=== PATIENT | female | born 1930 | race Caucasian/White ===

== ENCOUNTER 2018-08-14 18:11 | Inpatient (IN) | payer MEDICARE, OTHER ==
[2018-08-14 18:50] LABS: % EOSINOPHILS 3.3 % (0.0-5.0); % MONOCYTES 7.3 % (2.0-10.0); % NEUTROPHILS 70.4 % (40.0-80.0); EOSINOPHILE ABSOLUTE 0.3 Th/cmm (0.1-0.4); HEMATOCRIT 43.2 % (41.0-60); HEMOGLOBIN 14.1 gm/dL (12-16); LYMPHOCYTE ABSOLUTE 1.9 Th/cmm (1.5-3.0); MEAN CELL VOLUME 90.1 fl (81-100); MEAN CORPUSCULAR HEMOGLOBIN 29.4 pg (27.0-31.0); MEAN CORPUSCULAR HGB CONC 32.7 pg (28.0-36.0); MONOCYTE ABSOLUTE 0.7 Th/cmm (0.3-1.0); NEUTROPHILE ABSOLUTE 7.1 Th/cmm (1.8-8.0); PLATELET COUNT 243 Th/cmm (150-400); RED CELL DISTRIBUTION WIDTH 13.5 % (11.5-20.0)
[2018-08-14 19:05] LABS: URINE SOURCE CLEAN C
--- NOTE | 2018-08-14 19:06 | ED Physician Chart ---
ED Chief Complaint/HPI - Patient Information Date Seen:: 08/14/18 Time Seen:: 18:19 Chief Complaint:: agitation, voluntary admit History of Present Illness:: agitation, voluntary admit Allergies:: Allergies Allergy/AdvReac Type Severity Reaction Status Date / Time No Known Allergies Allergy Verified 08/14/18 18:19 Vitals:: Vital Signs - 8 hr 08/14/18 18:19 Temp 97.9 F HR 66 RR 16 BP 129/58 O2 Sat % 98 Historian:: Medical Records Review:: Nurse's Note Reviewed ED Review of Systems - Review of Systems General/Constitutional: No fever, No chills, No weight loss, No weakness, No diaphoresis, No edema, No loss of appetite Skin: No skin lesions, No rash, No bruising Head: No headache, No light-headedness Eyes: No loss of vision, No pain, No diplopia ENT: No earache, No nasal drainage, No sore throat, No tinnitus Neck: No neck pain, No swelling, No thyromegaly, No stiffness, No mass noted Cardio Vascular: No chest pain, No palpitations, No PND, No orthopnea, No edema Pulmonary: No SOB, No cough, No sputum, No wheezing GI: No nausea, No vomiting, No diarrhea, No pain, No melena, No hematochezia, No constipation, No hematemesis G/U: No dysuria, No frequency, No hematuria Musculoskeletal: No bone or joint pain, No back pain, No muscle pain Endocrine: No polyuria, No polydipsia Psychiatric: Prior psych history, Other (increased agitation) Hematopoietic: No bruising, No lymphadenopathy Allergic/Immuno: No urticaria, No angioedema Neurological: No syncope, No focal symptoms, No weakness, No paresthesia, No headache, No seizure, No dizziness, No confusion, No vertigo ED Past Medical History - Past Medical History Obtainable: No Past Medical History: HTN, Dyslipidemia, Thyroid disorder, Dementia, Other ( muscle weakness; nonSTEMI CO; CHF; stage III CKD) Psychiatricy History: Dementia Family Medical History - Family Member Mother History Unknown: Yes ED Physical Exam - Physical Examination General/Constitutional: Awake Other Gen/Cons comments:: Thin female. Head: Atraumatic Eyes: Lids, conjuctiva normal, PERRL, EOMI Skin: Nl inspection, No rash, No skin lesions, No ecchymosis, Well hydrated, No lymphadenopathy ENMT: External ears, nose nl Neck: Nontender Respiratory: Nl effort/Exclusion, Clear to Auscultation, No Wheeze/Rhonchi/Rales Cardio Vascular: RRR, No murmur, gallop, rubs, NL S1 S2 GI: No tenderness/rebounding/guarding, No organomegaly, No hernia, Normal BS's, Nondistended, No mass/bruits, No McBurney tenderness : No CVA tenderness Extremities: No tenderness or effusion, Full ROM, normal strength in all extremities, No edema, Normal digits & nails Neuro/Psych: Normal sensory exam, Normal motor strength Other Neuro/Psych comments:: walking around alot. Misc: Normal back, No paraspinal tenderness ED Labs/Radiology/EKG Results - Lab Results Results: Laboratory Tests 08/14/18 18:44 WBC 10.0 RBC 4.80 Hgb 14.1 Hct 43.2 MCV 90.1 MCH 29.4 MCHC Differential 32.7 RDW 13.5 Plt Count 243 MPV 8.0 Neutrophils % 70.4 Lymphocytes % 19.0 L Monocytes % 7.3 Eosinophils % 3.3 Basophils % 0.0 ED Assessment - Assessment General Assessment: has eaten dinner Assessment/Comments:: sign out given to Dr. Martin at 7:05 p.m. ED Septic Shock - . Is Septic Shock (SBP<90, OR Lactate>4 mmol\L) present?: No - <6hrs of presentation: Vital Signs: Vital Signs - 8 hr 08/14/18 18:19 Temp 97.9 F HR 66 RR 16 BP 129/58 O2 Sat % 98 ED Reassessment (Disposition) - Reassessment Reassessment Condition:: Unchanged - Diagnosis Diagnosis:: Increased agitation Dementia Muscle weakness nonSTEMI CO CHF HTN Hyperlipidemia Hypothyroidism Stage III chronic kidney disease - Patient Disposition Discharge/Transfer:: Acute Care w/in this hosp Admitted to:: [facility] Condition at Disposition:: Stable, Unchanged
[2018-08-14 19:09] LABS: ALB/GLOB RATIO 1.1 (1.0-1.8); ALBUMIN 3.9 gm/dL (3.7-5.3); ALKALINE PHOSPHATASE 67 U/L (34-104); ANION GAP 13.5 (7.0-16.0); BILIRUBIN,TOTAL 0.4 mg/dL (0.3-1.0); BUN - UREA NITROGEN 35 mg/dL (7-25); CALCIUM SERUM 9.7 mg/dL (8.6-10.3); CARBON DIOXIDE 27.4 mEq/L (21.0-31.0); CHLORIDE 104 mEq/L (98-107); CREATININE - SERUM 1.2 mg/dL (0.6-1.2); GLUCOSE 121 mg/dL (70-105); MAGNESIUM 2.1 mg/dL (1.9-2.7); PHOSPHOROUS 3.4 mg/dL (2.5-5.0); POTASSIUM SERUM 3.9 mEq/L (3.5-5.1); SGOT 14 U/L (13-39); SGPT/ALT 10 U/L (7-52); SODIUM SERUM 141 mEq/L (136-145); TOTAL PROTEIN,SERUM 7.4 gm/dL (6.0-8.3)
[2018-08-14 19:09] LABS: AMPHETAMINE URINE NEGATIVE (NEGATIVE); BARBITURATES URINE NEGATIVE (NEGATIVE); BENZODIAZEPINES QUAL URINE NEGATIVE (NEGATIVE); CANNABINOID THC NEGATIVE (NEGATIVE); COCAINE METABOLITE QUAL URINE NEGATIVE (NEGATIVE); METHADONE URINE NEGATIVE (NEGATIVE); METHAMPHETAMINES QUAL URINE NEGATIVE (NEGATIVE); OPIATES (MORPHINE) QUAL. URINE NEGATIVE (NEGATIVE); PHENCYCLIDINE (PCP) URINE NEGATIVE (NEGATIVE); TRICYCLICS (TCA) QUAL. URINE NEGATIVE (NEGATIVE); URINE BILIRUBIN NEGATIVE (NEGATIVE); URINE BLOOD NEGATIVE (NEGATIVE); URINE GLUCOSE (UA) NEGATIVE (NEGATIVE); URINE KETONE NEGATIVE (NEGATIVE); URINE LEUKOCYTE ESTERASE LARGE (NEGATIVE); URINE MICROSCOPIC INDICATED? YES; URINE NITRATE POSITIVE (NEGATIVE); URINE PH 7.5 (4.6 - 8.0); URINE PROTEIN NEGATIVE (NEGATIVE); URINE UROBILINOGEN 0.2 E.U./dL (0.2 - 1.0)
[2018-08-14 19:12] LABS: URINE CLARITY CLEAR (CLEAR); URINE COLOR YELLOW
[2018-08-14 19:15] LABS: URINE EPITHELIAL CELLS MODERATE /lpf (FEW); URINE RBC 0-2 /hpf (0-5)
[2018-08-14 19:16] LABS: URINE BACTERIA 4+ /hpf (NONE SEEN); URINE TRIPLE PHOSPHATE CRYSTAL FEW /hpf (FEW)
[2018-08-14] MEDS ORDERED: Ciprofloxacin 400mg Premix PB 400 MG/200 ML BAG IV ONE ×2 (19:18→19:40)
[2018-08-14 21:36] VITALS: BP 115/75
[2018-08-14 22:16] LABS: CHOLESTEROL 151 mg/dL (<200); HDL -HIGH DENSITY LIPOPROTEIN 47 mg/dL (23-92); TRIGLYCERIDES 95 mg/dL (<150)
[2018-08-15] MEDS: Docusate Sodium/Senna Tab PO SCH (09:23)
[2018-08-15] MEDS: Multivitamin w/ Minerals Tab PO SCH (09:24)
[2018-08-16] MEDS: Multivitamin w/ Minerals Tab PO SCH (09:57)
[2018-08-16] MEDS: Docusate Sodium/Senna Tab PO SCH (09:58)
--- NOTE | 2018-08-16 22:34 | History & Physical ---
ADMIT DATE: 08/15/2018 REASON FOR ADMISSION: Psychiatric disorder. HISTORY OF PRESENT ILLNESS: This is an 87-year-old female with underlying history of hypertension, UTI, admitted to the [facility] for underlying psychiatric illnesses by Dr. Sierra. Dr. Sierra requested medical H and P on this patient. The patient, at the time of my evaluation, seems confused, unable to provide any meaningful history. Most of the history obtained through the medical records. PAST MEDICAL HISTORY: Hypertension. PAST SURGICAL HISTORY: No significant past surgeries reported. SOCIAL HISTORY: No reported alcohol, tobacco or drug use. CURRENT MEDICATIONS: Per medication reconciliation. ALLERGIES: NO DRUG ALLERGIES. REVIEW OF SYSTEMS: No reported fever, no diarrhea, no vomiting, no chest, no trouble breathing. No headache, no rash, or any bleeding reported. PHYSICAL EXAMINATION: VITAL SIGNS: Temperature 98.1, pulse 90, respiration 18, blood pressure 126/70 HEART: S1, S2 normal. LUNGS: Clear to auscultation. ABDOMEN: Soft. EXTREMITIES: No edema noted. LABORATORY DATA: Available laboratory data has been reviewed. ASSESSMENT: 1. Urinary tract infection. 2. Hypertension. 3. Mental disorders. PLAN: The patient will be continued on antibiotics. Continue current blood pressure medication and monitor vitals. Psych evaluation and management per psychiatrist. The patient is medically stable to participate in activities at [facility]. JOB# [id number] [email or web address]
--- NOTE | 2018-08-17 01:56 | Psychiatric Evaluation ---
DATE OF SERVICE: 08/14/2018 PSYCHIATRIC INITIAL EVALUATION AND MENTAL STATUS EXAM PATIENT'S AGE: 87-year-old. SEX: Female. PHYSICIAN: Dr. Sierra. CHIEF COMPLAINT: Confusion and agitation. HISTORY OF PRESENT ILLNESS: The patient is an 87-year-old female who was transferred to the hospital from [facility] because of increased confusion and agitation. The patient has been wandering around the facility in a confused and in agitated state. The patient also was not able to follow any of staff directions and she was more irritable and in angry mood. The patient also was restless and was irritable and the patient was given Risperdal, but the patient did not calm down. She is still confused and restless and agitated and the patient has been wandering around the unit. She also is unable to follow any directions and gets more agitated when staff tries to redirect her. PAST PSYCHIATRIC HISTORY: The patient has history of dementia and also history of psychosis. PAST MEDICAL HISTORY: The patient has a history of hypertension, dyslipidemia and hypothyroidism. SOCIAL HISTORY: The patient lives in [facility] in the [facility]. The patient has no known alcohol or drug use. ALLERGIES: No known allergies. MENTAL STATUS EXAMINATION: The patient appears her stated age. Anxious. Flat affect. Irritable mood. Confused. Unable to answer any of the questions currently and her thoughts are disorganized. The patient did not answer question regarding hallucinations or delusions, but she seems to be preoccupied and actively responding. The patient denies any thoughts of suicide or homicide. The patient is alert, but disoriented to the place, person and situation. Impaired immediate and recent memory, but intact remote memory. Poor insight and poor judgment. She seems to be of average intelligence based on her verbal ability. ASSESSMENT: PRIMARY DIAGNOSIS: Unspecified psychosis. SECONDARY DIAGNOSIS: Dementia, moderate to severe, with behavioral disturbances and psychotic features. MEDICAL DIAGNOSES: Hypertension. Hypothyroidism. TREATMENT PLAN: We will continue monitoring her behavior closely. We will start individual as well as milieu psychotherapy. We will monitor psychotropic medications. ESTIMATED LENGTH OF STAY: 5-7 days. THE PATIENT'S STRENGTHS AND WEAKNESSES: The patient's strength is not clear at this time except the patient is able to return to [facility]. Weaknesses is ineffective coping and poor impulse control. AFTER DISCHARGE PLAN: Outpatient treatment and followup will continue as an outpatient. JOB# [id number]
--- NOTE | 2018-08-17 02:01 | Progress Notes ---
DATE: 08/16/2018 SUBJECTIVE: Chart reviewed and the patient interviewed. Also, discussed the patient's condition with the staff and reviewed records and labs. The patient is still suspicious and is still paranoid. The patient also is still pacing up and down the unit in a confused state. Also, the patient is easily agitated and easily irritable. Otherwise, the patient is compliant with medications, no side effects of medications. ASSESSMENT: The patient is still agitated and psychotic. TREATMENT PLAN: Continue monitoring her behavior closely. Also, continue adjusting psychotropic medications and follow up closely. JOB# [id number]
[2018-08-17] MEDS: Docusate Sodium/Senna Tab PO SCH (09:21)
[2018-08-17] MEDS: Multivitamin w/ Minerals Tab PO SCH (09:21)
[2018-08-17] MEDS ORDERED: Probiotic Screen MC PRN (10:00)
[2018-08-18] MEDS: Multivitamin w/ Minerals Tab PO SCH (09:12)
[2018-08-18] MEDS: Lactobacillus Rhamnosus GG 15 Billion CFU CAP.SPRINK PO SCH (09:13)
[2018-08-18] MEDS: Docusate Sodium/Senna Tab PO SCH (09:13)
--- NOTE | 2018-08-18 16:35 | Progress Notes ---
DATE: PSYCHIATRIC PROGRESS NOTE SUBJECTIVE: Chart reviewed and the patient interviewed. Also discussed the patient's condition with the staff and reviewed records and labs. The patient is still anxious and is still in depressed mood. The patient also is still confused and needs lots of redirections. She also is still easily irritable and easily agitated at times. Otherwise, the patient is compliant with taking her medications with no side effects of medications. ASSESSMENT: The patient is still agitated and needs close monitoring. TREATMENT PLAN: Continue monitoring her behavior and her condition and continue adjusting psychotropic medications and followup. JOB# [id number]
--- NOTE | 2018-08-18 18:19 | Progress Notes ---
DATE: PSYCHIATRIC PROGRESS NOTE SUBJECTIVE: Chart reviewed and the patient interviewed. Also discussed the patient's condition with the staff and reviewed records and labs. The patient is still confused. The patient also still has flat affect, has signs of agitation and irritability, but seems to be less. The patient also is still suspicious and paranoid. Otherwise, the patient is compliant with taking her medications with no side effects of medications. ASSESSMENT: The patient is still psychotic and guarded. TREATMENT PLAN: Continue monitoring her behavior and her condition closely. Also, continue adjusting psychotropic medications and followup. JOB# [id number]
--- NOTE | 2018-08-19 08:04 | Progress Notes ---
DATE: SUBJECTIVE: Chart reviewed and the patient interviewed. Also discussed the patient's condition with the staff and reviewed records and labs. The patient continues to be depressed and is withdrawn. The patient also is interacting minimally with others. She also is still feeling hopeless and she is still forgetful. On the other hand, the patient is sleeping better and she is compliant with taking her medications with no side effects. ASSESSMENT: The patient still seems to be depressed. TREATMENT PLAN: We will continue to monitor her condition closely. Also working on her ineffective coping. Also, we will increase Remeron to 22.5 mg at bedtime and continue Risperdal and we will continue to follow up closely. JOB# [id number]
[2018-08-19] MEDS: Lactobacillus Rhamnosus GG 15 Billion CFU CAP.SPRINK PO SCH ×2 (08:27→10:00)
[2018-08-19] MEDS: Multivitamin w/ Minerals Tab PO SCH ×2 (08:27→10:00)
[2018-08-19] MEDS: Docusate Sodium/Senna Tab PO SCH ×2 (08:28→10:00)
[2018-08-20] MEDS: Docusate Sodium/Senna Tab PO SCH (08:55)
[2018-08-20] MEDS: Multivitamin w/ Minerals Tab PO SCH (08:55)
[2018-08-20] MEDS: Lactobacillus Rhamnosus GG 15 Billion CFU CAP.SPRINK PO SCH (08:57)
--- NOTE | 2018-08-21 00:20 | Progress Notes ---
DATE: SUBJECTIVE: Chart reviewed and the patient interviewed. Also discussed the patient's condition with the staff and reviewed records and labs. The patient is still depressed and withdrawn and anxious. The patient also still wants to be left alone and she is having minimal interaction with others. She also is still feeling hopeless and helpless. She is also still needs redirections. The patient is compliant with taking her medications and she denies any side effects of medications. ASSESSMENT: The patient is anxious and depressed. TREATMENT PLAN: Remeron was increased yesterday to 22.5 mg at bedtime with no side effects. We will continue same dose. Also, continue Risperdal same dose and continue to work on behavioral modification and on her severe level of depression. JOB# [id number]
--- NOTE | 2018-08-21 06:57 | Progress Notes ---
DATE: SUBJECTIVE: Chart reviewed and the patient interviewed. Also discussed the patient's condition with the staff and reviewed records and labs. The patient is still depressed and the patient is still withdrawn. The patient also is interacting minimally with others. She also wants to be left alone. Otherwise, the patient is compliant with taking her medications with no side effects of citalopram. ASSESSMENT: The patient is still depressed and withdrawn. TREATMENT PLAN: Continue to monitor her behavior and her condition closely. Also, continue adjusting psychotropic medications and working on behavioral modifications. JOB# [id number]
[2018-08-21] MEDS: Docusate Sodium/Senna Tab PO SCH (09:22)
[2018-08-21] MEDS: Lactobacillus Rhamnosus GG 15 Billion CFU CAP.SPRINK PO SCH (09:22)
[2018-08-21] MEDS: Multivitamin w/ Minerals Tab PO SCH (09:23)
[2018-08-22] MEDS: Lactobacillus Rhamnosus GG 15 Billion CFU CAP.SPRINK PO SCH (09:10)
[2018-08-22] MEDS: Docusate Sodium/Senna Tab PO SCH (09:10)
[2018-08-22] MEDS: Multivitamin w/ Minerals Tab PO SCH (09:11)
--- NOTE | 2018-08-22 18:31 | Progress Notes ---
DATE: 08/22/2018 SUBJECTIVE: Chart reviewed and the patient interviewed. Also, discussed the patient's condition with the staff and reviewed records and labs. The patient is withdrawn and she is still confused. The patient also is still depressed. The patient also is interacting minimally with others. She also still wants to be left alone. Otherwise, the patient is denying any thoughts of suicide and denies any side effects of medications and the Celexa was increased yesterday to 20 mg every day with no side effects. ASSESSMENT: The patient is still depressed and confused. TREATMENT PLAN: Continue to monitor her behavior and her condition closely and continue adjusting psychotropic medications and followup. JOB# [id number]
[2018-08-23] MEDS: Lactobacillus Rhamnosus GG 15 Billion CFU CAP.SPRINK PO SCH (09:41)
[2018-08-23] MEDS: Docusate Sodium/Senna Tab PO SCH (09:41)
[2018-08-23] MEDS: Multivitamin w/ Minerals Tab PO SCH (09:41)
--- NOTE | 2018-08-23 17:21 | Progress Notes ---
DATE: SUBJECTIVE: Chart reviewed and the patient interviewed. Also discussed the patient's condition with the staff and reviewed records and labs. The patient is calmer. She is less irritable and less agitated. The patient also is interacting more with peers and others. She still needs redirections. No side effects of medications. ASSESSMENT: The patient continues to improve. TREATMENT PLAN: Continue monitoring behavior and adjusting psychotropic medications and work on discharge plans and placement issue. [facility]# [id number]
[2018-08-24] MEDS: Multivitamin w/ Minerals Tab PO SCH (09:45)
[2018-08-24] MEDS: Docusate Sodium/Senna Tab PO SCH (09:45)
[2018-08-24] MEDS: Lactobacillus Rhamnosus GG 15 Billion CFU CAP.SPRINK PO SCH (09:45)
[2018-08-24 14:00] LABS: % BASOPHILS 0.8 % (0.0-2.0); % EOSINOPHILS 0.4 % (0.0-5.0); % LYMPHOCYTES 8.1 % (20.0-50.0); % MONOCYTES 8.6 % (2.0-10.0); % NEUTROPHILS 82.1 % (40.0-80.0); BASOPHILE ABSOLUTE 0.1 Th/cumm (0-0.2); HEMATOCRIT 39.1 % (41.0-60); HEMOGLOBIN 12.8 gm/dL (12-16); MEAN CELL VOLUME 90.7 fl (81-100); MEAN CORPUSCULAR HEMOGLOBIN 29.7 pg (27.0-31.0); MEAN CORPUSCULAR HGB CONC 32.8 pg (28.0-36.0); MEAN PLATELET VOLUME 7.9 fl; MONOCYTE ABSOLUTE 1.1 Th/cmm (0.3-1.0); NEUTROPHILE ABSOLUTE 10.1 Th/cmm (1.8-8.0); PLATELET COUNT 408 Th/cmm (150-400); RED BLOOD COUNT 4.31 Mil/cmm (3.80-5.20); RED CELL DISTRIBUTION WIDTH 14.1 % (11.5-20.0); WHITE BLOOD COUNT 12.3 Th/cmm (4.8-10.8)
[2018-08-24 14:16] LABS: BUN - UREA NITROGEN 40 mg/dL (7-25); CALCIUM SERUM 9.6 mg/dL (8.6-10.3); CARBON DIOXIDE 24.1 mEq/L (21.0-31.0); CHLORIDE 108 mEq/L (98-107); CREATININE - SERUM 1.2 mg/dL (0.6-1.2); GLUCOSE 199 mg/dL (70-105); POTASSIUM SERUM 4.1 mEq/L (3.5-5.1); SODIUM SERUM 142 mEq/L (136-145)
--- NOTE | 2018-08-24 23:53 | Discharge Summary ---
DATE OF DISCHARGE: 08/24/2018 PATIENT'S AGE: 87. SEX: Female. PHYSICIAN: Waqas Sierra MD, MPH FINAL DIAGNOSES: PRIMARY DIAGNOSIS: Unspecified psychosis. SECONDARY DIAGNOSES: Dementia, moderate to severe, with behavioral disturbances and psychotic features. MEDICAL DIAGNOSES: Hypothyroidism. Hypertension. REASON FOR HOSPITALIZATION: The patient was admitted to the hospital from [facility] in [place] because of confusion and increased agitation and the patient was wandering and had difficulty following directions and she was severely agitated. HOSPITAL COURSE: The patient continued to be agitated and in irritable mood. The patient also was unable to follow directions. The patient also was having difficulty with her sleep at night. The patient was continued to take Celexa and Remeron. Risperdal was added and the dose adjusted to 2 mg at bedtime. Gradually, the patient's affect was brighter. The patient was less irritable and less agitated. The patient was discharged back to [facility]. Physical exam of the patient showed no major medical problems and the patient had no major behavior while in the hospital. LABS: No major abnormal labs. AFTER DISCHARGE PLANS: Outpatient treatment and followup will continue as an outpatient in [place]. EXPECTED OUTCOME AFTER DISCHARGE: Fair if the patient continues to take her medications and follow up with discharge plans. [facility]# [id number]
--- NOTE | 2018-08-25 07:13 | Progress Notes ---
DATE: During a phone call to the unit regarding a new admit and another patient, I was informed that the patient did not leave, although I discharged the patient this morning. According to shelter case manager that I met with her in person and I discussed with her discharge plans for all the patient and she informed me that this patient and another one were ready to go back [facility]. It is not clear to me why the patient did not leave and even the head nurse in the unit did not know why did not leave and she did not give me any exact explanation for her not being discharged. This has been happening frequently for no reason and for no explanation and I was not even called to let me know that the patient is still on the unit. This is a serious problem and I will discuss with shelter case manager the reasons for why this has been happening lately more frequently in spite that everything was ready for her discharge. JOB# [id number]
[2018-08-25] MEDS: Docusate Sodium/Senna Tab PO SCH (10:39)
[2018-08-25] MEDS: Multivitamin w/ Minerals Tab PO SCH (10:41)
[2018-08-25] MEDS: Lactobacillus Rhamnosus GG 15 Billion CFU CAP.SPRINK PO SCH (10:41)
--- NOTE | 2018-08-25 11:26 | Diagnostic Imaging Report ---
Portable chest x-ray HISTORY: Cough The heart size is normal. Atherosclerotic calcification seen in the aorta. Generalized accentuation of the interstitial lung markings. However, no acute focal processes are seen. IMPRESSION: 1. No acute focal pulmonary processes
--- NOTE | 2018-08-25 19:45 | Progress Notes ---
DATE: 08/25/2018 SUBJECTIVE: Chart reviewed and the patient interviewed. Also, discussed the patient's condition with the staff and reviewed records and labs. The patient is calm and she is less agitated and less irritable. The patient also is easy to follow directions. She also is compliant with taking her medications with no side effects of medications. The patient was supposed to be discharged yesterday, but because of some incident that happened in the facility their place is not available at this time and her discharge was postponed. I spoke to the maintenance manager today and he said that she is not able to return at this time, but he is trying to fix her room and they will take her as soon as possible when the damage that happened in the facility will be fixed. JOB# [id number]
--- NOTE | 2018-08-25 20:38 | General Progress Note ---
Subjective - Review of Systems Service Date: 08/24/18 Subjective: Late entry: Patient seen and examined seems to have swallowing difficulty with current diet Objective - Results Result Diagrams: 08/24/18 13:52 08/24/18 13:52 Recent Labs: Laboratory Last Values WBC 12.3 Th/cmm (4.8-10.8) H 08/24/18 13:52 RBC 4.31 Mil/cmm (3.80-5.20) 08/24/18 13:52 Hgb 12.8 gm/dL (12-16) 08/24/18 13:52 Hct 39.1 % (41.0-60) L 08/24/18 13:52 MCV 90.7 fl (81-100) 08/24/18 13:52 MCH 29.7 pg (27.0-31.0) 08/24/18 13:52 MCHC Differential 32.8 pg (28.0-36.0) 08/24/18 13:52 RDW 14.1 % (11.5-20.0) 08/24/18 13:52 Plt Count 408 Th/cmm (150-400) H 08/24/18 13:52 MPV 7.9 fl 08/24/18 13:52 Neutrophils % 82.1 % (40.0-80.0) H 08/24/18 13:52 Lymphocytes % 8.1 % (20.0-50.0) L 08/24/18 13:52 Monocytes % 8.6 % (2.0-10.0) 08/24/18 13:52 Eosinophils % 0.4 % (0.0-5.0) 08/24/18 13:52 Basophils % 0.8 % (0.0-2.0) 08/24/18 13:52 Sodium 142 mEq/L (136-145) 08/24/18 13:52 Potassium 4.1 mEq/L (3.5-5.1) 08/24/18 13:52 Chloride 108 mEq/L (98-107) H 08/24/18 13:52 Carbon Dioxide 24.1 mEq/L (21.0-31.0) 08/24/18 13:52 Anion Gap 14.0 (7.0-16.0) 08/24/18 13:52 BUN 40 mg/dL (7-25) H 08/24/18 13:52 Creatinine 1.2 mg/dL (0.6-1.2) 08/24/18 13:52 Est GFR ( Amer) TNP 08/24/18 13:52 Est GFR (Non-Af Amer) TNP 08/24/18 13:52 BUN/Creatinine Ratio 33.3 08/24/18 13:52 Glucose 199 mg/dL (70-105) H 08/24/18 13:52 Calcium 9.6 mg/dL (8.6-10.3) 08/24/18 13:52 Phosphorus 3.4 mg/dL (2.5-5.0) 08/14/18 18:44 Magnesium 2.1 mg/dL (1.9-2.7) 08/14/18 18:44 Total Bilirubin 0.4 mg/dL (0.3-1.0) 08/14/18 18:44 AST 14 U/L (13-39) 08/14/18 18:44 ALT 10 U/L (7-52) 08/14/18 18:44 Alkaline Phosphatase 67 U/L (34-104) 08/14/18 18:44 Total Protein 7.4 gm/dL (6.0-8.3) 08/14/18 18:44 Albumin 3.9 gm/dL (3.7-5.3) 08/14/18 18:44 Globulin 3.5 gm/dL 08/14/18 18:44 Albumin/Globulin Ratio 1.1 (1.0-1.8) 08/14/18 18:44 Triglycerides 95 mg/dL (<150) 08/14/18 18:44 Cholesterol 151 mg/dL (<200) 08/14/18 18:44 LDL Cholesterol Direct 91 mg/dL (75-193) 08/14/18 18:44 HDL Cholesterol 47 mg/dL (23-92) 08/14/18 18:44 TSH 1.64 uIU/ml (0.34-5.60) 08/14/18 18:44 Urine Source CLEAN C 08/14/18 18:40 Urine Color YELLOW 08/14/18 18:40 Urine Clarity CLEAR (CLEAR) 08/14/18 18:40 Urine pH 7.5 (4.6 - 8.0) 08/14/18 18:40 Ur Specific [place] 1.010 (1.005-1.030) 08/14/18 18:40 Urine Protein NEGATIVE mg/dL (NEGATIVE) 08/14/18 18:40 Urine Glucose (UA) NEGATIVE mg/dL (NEGATIVE) 08/14/18 18:40 Urine Ketones NEGATIVE mg/dL (NEGATIVE) 08/14/18 18:40 Urine Blood NEGATIVE (NEGATIVE) 08/14/18 18:40 Urine Nitrate POSITIVE (NEGATIVE) H 08/14/18 18:40 Urine Bilirubin NEGATIVE (NEGATIVE) 08/14/18 18:40 Urine Urobilinogen 0.2 E.U./dL (0.2 - 1.0) 08/14/18 18:40 Ur Leukocyte Esterase LARGE (NEGATIVE) H 08/14/18 18:40 Urine RBC 0-2 /hpf (0-5) 08/14/18 18:40 Urine WBC 10-25 /hpf (0-5) H 08/14/18 18:40 Ur Epithelial Cells MODERATE /lpf (FEW) 08/14/18 18:40 Triple Phos Crystals FEW /hpf (FEW) 08/14/18 18:40 Urine Bacteria 4+ /hpf (NONE SEEN) H 08/14/18 18:40 Urine Opiates Screen NEGATIVE (NEGATIVE) 08/14/18 18:40 Urine Methadone Screen NEGATIVE (NEGATIVE) 08/14/18 18:40 Ur Barbiturates Screen NEGATIVE (NEGATIVE) 08/14/18 18:40 Ur Tricyclics Screen NEGATIVE (NEGATIVE) 08/14/18 18:40 Ur Phencyclidine Scrn NEGATIVE (NEGATIVE) 08/14/18 18:40 Amphetamines Screen NEGATIVE (NEGATIVE) 08/14/18 18:40 U Methamphetamines Scrn NEGATIVE (NEGATIVE) 08/14/18 18:40 U Benzodiazepines Scrn NEGATIVE (NEGATIVE) 08/14/18 18:40 U Cocaine Metab Screen NEGATIVE (NEGATIVE) 08/14/18 18:40 U Cannabinoids Screen NEGATIVE (NEGATIVE) 08/14/18 18:40 - Physical Exam Vitals and I&O: Vital Signs Temp 98.0 F 08/25/18 15:11 Pulse 90 08/25/18 15:11 Resp 18 08/25/18 15:11 BP 122/70 08/25/18 15:11 Pulse Ox 97 08/25/18 15:11 Intake & Output 08/25/18 08/25/18 08/26/18 06:59 18:59 06:59 Intake Total 1450 Balance 1450 Intake: Oral 1450 Other: # Voids 3 # Bowel Movements 0 Active Medications: Current Medications Acetaminophen (Tylenol) 325 mg PO Q4H PRN PRN Reason: Pain (Mild) LEVEL 1-3 Stop: 10/13/18 21:43 Aspirin (Ecotrin) 81 mg PO DAILY [facility] Stop: 10/14/18 08:59 Last Admin: 08/25/18 10:39 Dose: Not Given Carvedilol (Coreg) 3.125 mg PO BID [facility] Stop: 10/14/18 08:59 Last Admin: 08/25/18 18:20 Dose: Not Given Citalopram Hydrobromide (Celexa) 20 mg PO DAILY [facility]; Protocol Stop: 10/20/18 08:59 Last Admin: 08/25/18 10:39 Dose: Not Given Cyanocobalamin (Vitamin B12) 1,000 mcg PO DAILY [facility] Stop: 10/14/18 08:59 Last Admin: 08/25/18 10:39 Dose: Not Given Folic Acid (Folate) 1 mg PO DAILY [facility] Stop: 10/14/18 08:59 Last Admin: 08/25/18 10:41 Dose: Not Given Lactobacillus Rhamnosus (Culturelle 15b) 1 each PO DAILY [facility] Stop: 10/17/18 08:59 Last Admin: 08/25/18 10:41 Dose: Not Given Mirtazapine (Remeron) 22.5 mg PO HS [facility]; Protocol Stop: 10/18/18 20:59 Last Admin: 08/24/18 21:35 Dose: 22.5 mg Miscellaneous (Probiotic Screen) 1 ea MC PRN PRN PRN Reason: PROTOCOL Stop: 10/16/18 09:59 Risperidone (Risperdal) 2 mg PO HS [facility]; Protocol Stop: 10/14/18 20:59 Last Admin: 08/24/18 21:35 Dose: 2 mg Sennosides (Senna Plus 50 Mg-8.6 Mg) 1 tab PO DAILY [facility] Stop: 10/14/18 08:59 Last Admin: 08/25/18 10:39 Dose: Not Given Cardiovascular: Regular rate Lungs: Other (few rales) Assessment/Plan - Assessment Assessment: Dysphagia HTN Mental health disorder - Plan Plan: Labs and chest xray ordered ST Eval Plan of care discussed with nursing staff Nutritional Asmnt/Malnutr-PDOC - Dietary Evaluation Malnutrition Findings (Please click <Entered> for more info): Nutritional Asmnt/Malnutrition Start: 08/15/18 09: 22 Text: Status: Complete Freq: Protocol: Document 08/15/18 09:22 LESA (Rec: 08/15/18 09:51 LESA PALMA- FNS1) Nutritional Asmnt/Malnutrition Patient General Information Nutritional Screening High Risk Diagnosis Psychosis Pertinent Medical Hx/Surgical Hx muscle weakness, LA nonstemi in 2016, CHF, HTN, hyperlipidemia, hypothyroid, dementia, stage 3 CKD Subjective Information High risk due to BMI 17.1. PO intake not yet documented. Patient seen resting in bed at time of visit. Unable to answer questions regarding nutrition history. Current Diet Order/ Nutrition Support Cardiac Patient / S.O Not Indicated Pertinent Medications Vitamin B12, Folate Pertinent Labs BUN 35 Nutritional Hx/Data Height 1.6 m Height (Calculated Centimeters) 160.0 Current Weight (lbs) 43.998 kg Weight (Calculated Kilograms) 44.0 Weight (Calculated Grams) 79215.5 [place] Body Weight 115 % [place] Body Weight 84 Body Mass Index (BMI) 17.2 Weight Status Underweight GI Symptoms GI Symptoms None Last BM none in EMR Difficult in: None Food Allergies No Cultural/Ethnic/Caodaism Belief none indicated Usual diet at home none noted Skin Integrity/Comment: Tai 20, Intact Estimated Nutritional Goals BEE in Kcals: Adj wt of IBW Calories/Kcals/Kg 25-30 kcal/kg Using IBW 52.2kg Kcals Calculated ~2946-5078 kcal/day Protein: Adj wt of IBW Protein g/k-1.2 gm/kg Protein Calculated 50-60gm/day Fluid: ml ~1566-4103 ml/day Nutritional Problem 1. Problem Problem Underweight related to Etiology possible poor po intake aeb Signs/Symptoms: BMI 17.2 Intervention/Recommendation Comments 1. Continue cardiac diet as tolerated by patient due to Medical History (LA nonstemi in 2016, CHF, HTN, hyperlipidemia) 2. Encourage oral intake and monitor intake of meals. If oral intake <75% of meals consider adding Ensure Enlive with meals for added calories to increase weight. Expected Outcomes/Goals Expected Outcomes/Goals Oral intake >75% of meals, weight stable or gain, nutrition related labs WNL.
[2018-08-26] MEDS: Docusate Sodium/Senna Tab PO SCH (09:48)
[2018-08-26] MEDS: Lactobacillus Rhamnosus GG 15 Billion CFU CAP.SPRINK PO SCH (09:48)
[2018-08-26] MEDS: Multivitamin w/ Minerals Tab PO SCH (09:48)
--- NOTE | 2018-08-26 11:36 | Progress Notes ---
DATE: SUBJECTIVE: Chart reviewed and the patient interviewed. Also discussed the patient's condition with the staff and reviewed records and labs. The patient is still calm and cooperative. The patient also is interacting appropriately with peers and with others. The patient also denies any intention to harm herself or others. The patient also still wants to be left alone and is in a depressed mood. Otherwise, the patient is compliant with medications with no side effects of medications. I called to the facility yesterday where the patient is supposed to return, but the facility has some issues with the patient's room and the [facility] of Health is not allowed. The patient is to be admitted at this time over there and afterward discussion with the public service administrator of the facility "Fritz." He thinks that the patient might be able to return today. We will work on flexibility of the patient return today and at the same time, we will continue to work on her ineffective coping. JOB# [id number]
[2018-08-27] MEDS: Multivitamin w/ Minerals Tab PO SCH (09:27)
[2018-08-27] MEDS: Docusate Sodium/Senna Tab PO SCH (09:27)
[2018-08-27] MEDS: Lactobacillus Rhamnosus GG 15 Billion CFU CAP.SPRINK PO SCH (09:27)
--- NOTE | 2018-08-28 06:06 | Progress Notes ---
DATE: SUBJECTIVE: Chart reviewed and the patient interviewed. Also discussed the patient's condition with the staff and reviewed records and labs. The patient is still calm. The patient also is interacting more with peers and with others. She also is not agitated. She also is compliant with taking her medications with no side effects of medications. ASSESSMENT: The patient is less depressed, less agitated. TREATMENT PLAN: Continue to monitor behavior and continue working on discharge plans and still waiting for the patient placement in [place] to be able to accept the patient back when they fix the rooms there. JOB# [id number]
--- NOTE | 2018-08-28 06:47 | Progress Notes ---
DATE: 08/28/2018 Chart reviewed and the patient interviewed. Also discussed the patient's condition with the staff and reviewed records and labs. The patient is still confused and is still anxious. The patient also is still restless and she is still in angry and in irritable mood. The patient also is still suspicious and paranoid. Also wants to be left alone and is depressed and isolative. Otherwise, is still working on trying to discharge the patient's back home. At the same time, we will continue monitoring behavior and continue to follow up. JOB# [id number]
[2018-08-28] MEDS: Lactobacillus Rhamnosus GG 15 Billion CFU CAP.SPRINK PO SCH (08:27)
[2018-08-28] MEDS: Docusate Sodium/Senna Tab PO SCH (08:27)
[2018-08-28] MEDS: Multivitamin w/ Minerals Tab PO SCH (08:28)
[2018-08-29] MEDS: Multivitamin w/ Minerals Tab PO SCH (09:01)
[2018-08-29] MEDS: Docusate Sodium/Senna Tab PO SCH (09:01)
[2018-08-29] MEDS: Lactobacillus Rhamnosus GG 15 Billion CFU CAP.SPRINK PO SCH (09:22)
--- NOTE | 2018-08-30 01:40 | Progress Notes ---
DATE: 08/29/[address] iSerra. SUBJECTIVE: Case was discussed with staff of the patient and reviewed records. This is an 87-year-old female who was admitted on 08/14/[address] [facility] because of increasing confusion and agitation. The patient was wandering around the facility confused, agitated state, unable to follow staff direction, irritable, angry. The patient with a history of dementia and psychosis. The patient has been on aspirin, vitamin B12, Celexa 20 mg daily, and Remeron 22.5 mg at bedtime, multivitamin, Risperdal 2 mg at bedtime. The patient continues to be confused, anxious, unable to participate in meaningful conversation or make safe plan for self-care, continues to have poor insight, easily agitated at times. No side effects with the medication, no sedation, no nausea, no extrapyramidal symptoms and we will continue to work with the patient in the group therapy, milieu therapy, and adjust medications. [facility]# [id number]
--- NOTE | 2018-08-30 13:55 | Progress Notes ---
DATE: 08/30/2018 SUBJECTIVE: Case was discussed with staff of the patient, reviewed records. The patient continues to be depressed, suspicious, confused, unable to participate in meaningful conversation or make safe plan for self-care. Continues to have poor insight, unpredictable and impulsive. No side effects of the medication, no sedation, no nausea, no extrapyramidal symptoms. We will continue the patient in group therapy, milieu therapy, adjust medication as needed. [facility]# [id number]
[2018-08-30] MEDS: Docusate Sodium/Senna Tab PO SCH (14:38)
[2018-08-30] MEDS: Lactobacillus Rhamnosus GG 15 Billion CFU CAP.SPRINK PO SCH (14:38)
[2018-08-30] MEDS: Multivitamin w/ Minerals Tab PO SCH (14:38)
[2018-08-31] MEDS: Docusate Sodium/Senna Tab PO SCH (09:53)
[2018-08-31] MEDS: Multivitamin w/ Minerals Tab PO SCH (09:54)
[2018-08-31] MEDS: Lactobacillus Rhamnosus GG 15 Billion CFU CAP.SPRINK PO SCH (09:54)
--- NOTE | 2018-08-31 18:36 | Progress Notes ---
DATE: 08/31/2018 Chart reviewed and the patient interviewed. Also, discussed the patient's condition with the staff and reviewed the records and labs. The patient's affect is brighter. The patient is still confused and is still selectively mute. She also still needs sometimes redirections. Otherwise, the patient is compliant with taking her medications with no side effects of medications. ASSESSMENT: The patient is not suicidal or homicidal, but still waiting for placement and the place where she lives is still not ready yet. We will continue to monitor behavior until placement is available. JOB# [id number]
[2018-09-01] MEDS: Multivitamin w/ Minerals Tab PO SCH (08:42)
[2018-09-01] MEDS: Docusate Sodium/Senna Tab PO SCH (08:43)
[2018-09-01] MEDS: Lactobacillus Rhamnosus GG 15 Billion CFU CAP.SPRINK PO SCH (08:43)
[2018-09-01] MEDS ORDERED: Fleet Enema 135 mL RC ONE (11:48)
--- NOTE | 2018-09-01 20:41 | Progress Notes ---
DATE: 09/01/2018 SUBJECTIVE: Chart reviewed and the patient interviewed. Also, discussed the patient's condition with the staff and reviewed records and labs. The patient is still confused and she is still selectively mute. The patient also is still anxious and needs lots of redirection. She also denies any intention to harm herself or others, but she wants to be left alone. Otherwise, the patient is compliant with taking her medications with no side effects of medications. ASSESSMENT: The patient is still anxious and still waiting for placement. TREATMENT PLAN: Continue monitoring her behavior and working on discharge plans and waiting for placement of the patient. JOB# [id number]
[2018-09-02] MEDS: Lactobacillus Rhamnosus GG 15 Billion CFU CAP.SPRINK PO SCH (08:17)
[2018-09-02] MEDS: Multivitamin w/ Minerals Tab PO SCH (08:17)
[2018-09-02] MEDS: Docusate Sodium/Senna Tab PO SCH (08:17)
[2018-09-03] MEDS: Lactobacillus Rhamnosus GG 15 Billion CFU CAP.SPRINK PO SCH (09:42)
[2018-09-03] MEDS: Docusate Sodium/Senna Tab PO SCH (09:43)
[2018-09-03] MEDS: Multivitamin w/ Minerals Tab PO SCH (09:43)
--- NOTE | 2018-09-03 17:09 | General Progress Note ---
Subjective - Review of Systems Service Date: 09/01/18 Subjective: Late entry: Patient seen and examined nursing staff reported patient having constipation issue Objective - Results Result Diagrams: 08/24/18 13:52 08/24/18 13:52 Recent Labs: Laboratory Last Values WBC 12.3 Th/cmm (4.8-10.8) H 08/24/18 13:52 RBC 4.31 Mil/cmm (3.80-5.20) 08/24/18 13:52 Hgb 12.8 gm/dL (12-16) 08/24/18 13:52 Hct 39.1 % (41.0-60) L 08/24/18 13:52 MCV 90.7 fl (81-100) 08/24/18 13:52 MCH 29.7 pg (27.0-31.0) 08/24/18 13:52 MCHC Differential 32.8 pg (28.0-36.0) 08/24/18 13:52 RDW 14.1 % (11.5-20.0) 08/24/18 13:52 Plt Count 408 Th/cmm (150-400) H 08/24/18 13:52 MPV 7.9 fl 08/24/18 13:52 Neutrophils % 82.1 % (40.0-80.0) H 08/24/18 13:52 Lymphocytes % 8.1 % (20.0-50.0) L 08/24/18 13:52 Monocytes % 8.6 % (2.0-10.0) 08/24/18 13:52 Eosinophils % 0.4 % (0.0-5.0) 08/24/18 13:52 Basophils % 0.8 % (0.0-2.0) 08/24/18 13:52 Sodium 142 mEq/L (136-145) 08/24/18 13:52 Potassium 4.1 mEq/L (3.5-5.1) 08/24/18 13:52 Chloride 108 mEq/L (98-107) H 08/24/18 13:52 Carbon Dioxide 24.1 mEq/L (21.0-31.0) 08/24/18 13:52 Anion Gap 14.0 (7.0-16.0) 08/24/18 13:52 BUN 40 mg/dL (7-25) H 08/24/18 13:52 Creatinine 1.2 mg/dL (0.6-1.2) 08/24/18 13:52 Est GFR ( Amer) TNP 08/24/18 13:52 Est GFR (Non-Af Amer) TNP 08/24/18 13:52 BUN/Creatinine Ratio 33.3 08/24/18 13:52 Glucose 199 mg/dL (70-105) H 08/24/18 13:52 Calcium 9.6 mg/dL (8.6-10.3) 08/24/18 13:52 Phosphorus 3.4 mg/dL (2.5-5.0) 08/14/18 18:44 Magnesium 2.1 mg/dL (1.9-2.7) 08/14/18 18:44 Total Bilirubin 0.4 mg/dL (0.3-1.0) 08/14/18 18:44 AST 14 U/L (13-39) 08/14/18 18:44 ALT 10 U/L (7-52) 08/14/18 18:44 Alkaline Phosphatase 67 U/L (34-104) 08/14/18 18:44 Total Protein 7.4 gm/dL (6.0-8.3) 08/14/18 18:44 Albumin 3.9 gm/dL (3.7-5.3) 08/14/18 18:44 Globulin 3.5 gm/dL 08/14/18 18:44 Albumin/Globulin Ratio 1.1 (1.0-1.8) 08/14/18 18:44 Triglycerides 95 mg/dL (<150) 08/14/18 18:44 Cholesterol 151 mg/dL (<200) 08/14/18 18:44 LDL Cholesterol Direct 91 mg/dL (75-193) 08/14/18 18:44 HDL Cholesterol 47 mg/dL (23-92) 08/14/18 18:44 TSH 1.64 uIU/ml (0.34-5.60) 08/14/18 18:44 Urine Source CLEAN C 08/14/18 18:40 Urine Color YELLOW 08/14/18 18:40 Urine Clarity CLEAR (CLEAR) 08/14/18 18:40 Urine pH 7.5 (4.6 - 8.0) 08/14/18 18:40 Ur Specific [place] 1.010 (1.005-1.030) 08/14/18 18:40 Urine Protein NEGATIVE mg/dL (NEGATIVE) 08/14/18 18:40 Urine Glucose (UA) NEGATIVE mg/dL (NEGATIVE) 08/14/18 18:40 Urine Ketones NEGATIVE mg/dL (NEGATIVE) 08/14/18 18:40 Urine Blood NEGATIVE (NEGATIVE) 08/14/18 18:40 Urine Nitrate POSITIVE (NEGATIVE) H 08/14/18 18:40 Urine Bilirubin NEGATIVE (NEGATIVE) 08/14/18 18:40 Urine Urobilinogen 0.2 E.U./dL (0.2 - 1.0) 08/14/18 18:40 Ur Leukocyte Esterase LARGE (NEGATIVE) H 08/14/18 18:40 Urine RBC 0-2 /hpf (0-5) 08/14/18 18:40 Urine WBC 10-25 /hpf (0-5) H 08/14/18 18:40 Ur Epithelial Cells MODERATE /lpf (FEW) 08/14/18 18:40 Triple Phos Crystals FEW /hpf (FEW) 08/14/18 18:40 Urine Bacteria 4+ /hpf (NONE SEEN) H 08/14/18 18:40 Urine Opiates Screen NEGATIVE (NEGATIVE) 08/14/18 18:40 Urine Methadone Screen NEGATIVE (NEGATIVE) 08/14/18 18:40 Ur Barbiturates Screen NEGATIVE (NEGATIVE) 08/14/18 18:40 Ur Tricyclics Screen NEGATIVE (NEGATIVE) 08/14/18 18:40 Ur Phencyclidine Scrn NEGATIVE (NEGATIVE) 08/14/18 18:40 Amphetamines Screen NEGATIVE (NEGATIVE) 08/14/18 18:40 U Methamphetamines Scrn NEGATIVE (NEGATIVE) 08/14/18 18:40 U Benzodiazepines Scrn NEGATIVE (NEGATIVE) 08/14/18 18:40 U Cocaine Metab Screen NEGATIVE (NEGATIVE) 08/14/18 18:40 U Cannabinoids Screen NEGATIVE (NEGATIVE) 08/14/18 18:40 - Physical Exam Vitals and I&O: Vital Signs Temp 96.5 F 09/03/18 15:09 Pulse 67 09/03/18 15:09 Resp 20 09/03/18 15:09 BP 111/68 09/03/18 15:09 Pulse Ox 94 10/18/18 15:09 Intake & Output 09/02/18 09/03/18 09/03/18 18:59 06:59 18:59 Intake Total 800 60 Balance 800 60 Intake: Oral 800 60 Other: # Voids 3 3 # Bowel Movements 0 1 Active Medications: Current Medications Acetaminophen (Tylenol) 325 mg PO Q4H PRN PRN Reason: Pain (Mild) LEVEL 1-3 Stop: 10/13/18 21:43 Aspirin (Ecotrin) 81 mg PO DAILY [facility] Stop: 10/14/18 08:59 Last Admin: 09/03/18 09:42 Dose: 81 mg Carvedilol (Coreg) 3.125 mg PO BID [facility] Stop: 10/14/18 08:59 Last Admin: 09/03/18 09:43 Dose: 3.125 mg Citalopram Hydrobromide (Celexa) 20 mg PO DAILY [facility]; Protocol Stop: 10/20/18 08:59 Last Admin: 09/03/18 09:42 Dose: 20 mg Cyanocobalamin (Vitamin B12) 1,000 mcg PO DAILY [facility] Stop: 10/14/18 08:59 Last Admin: 09/03/18 09:43 Dose: 1,000 mcg Folic Acid (Folate) 1 mg PO DAILY [facility] Stop: 10/14/18 08:59 Last Admin: 09/03/18 09:43 Dose: 1 mg Lactobacillus Rhamnosus (Culturelle 15b) 1 each PO DAILY [facility] Stop: 10/17/18 08:59 Last Admin: 09/03/18 09:42 Dose: 1 each Mirtazapine (Remeron) 22.5 mg PO HS [facility]; Protocol Stop: 10/18/18 20:59 Last Admin: 09/02/18 21:21 Dose: 22.5 mg Miscellaneous (Probiotic Screen) 1 ea MC PRN PRN PRN Reason: PROTOCOL Stop: 10/16/18 09:59 Risperidone (Risperdal) 2 mg PO HS [facility]; Protocol Stop: 10/14/18 20:59 Last Admin: 09/02/18 21:21 Dose: 2 mg Sennosides (Senna Plus 50 Mg-8.6 Mg) 1 tab PO DAILY [facility] Stop: 10/14/18 08:59 Last Admin: 09/03/18 09:43 Dose: 1 tab Cardiovascular: Regular rate Lungs: Clear to auscultation, Other Abdomen: Soft, no Tender Assessment/Plan - Assessment Assessment: Constipation Dysphagia HTN Mental health disorder - Plan Plan: Stool softner Enema prn Continue other meds Plan of care discussed with nursing staff Nutritional Asmnt/Malnutr-PDOC - Dietary Evaluation Malnutrition Findings (Please click <Entered> for more info): Nutritional Asmnt/Malnutrition Start: 08/15/18 09: 22 Text: Status: Complete Freq: Protocol: Document 08/15/18 09:22 MMANTONIO (Rec: 08/15/18 09:51 [email or web address] PALMA- [email or web address]) Nutritional Asmnt/Malnutrition Patient General Information Nutritional Screening High Risk Diagnosis Psychosis Pertinent Medical Hx/Surgical Hx muscle weakness, [place] nonstemi in 2016, CHF, HTN, hyperlipidemia, hypothyroid, dementia, stage 3 CKD Subjective Information High risk due to BMI 17.1. PO intake not yet documented. Patient seen resting in bed at time of visit. Unable to answer questions regarding nutrition history. Current Diet Order/ Nutrition Support Cardiac Patient / S.O Not Indicated Pertinent Medications Vitamin B12, Folate Pertinent Labs BUN 35 Nutritional Hx/Data Height 1.6 m Height (Calculated Centimeters) 160.0 Current Weight (lbs) 43.998 kg Weight (Calculated Kilograms) 44.0 Weight (Calculated Grams) 46514.5 [place] Body Weight 115 % [place] Body Weight 84 Body Mass Index (BMI) 17.2 Weight Status Underweight GI Symptoms GI Symptoms None Last BM none in EMR Difficult in: None Food Allergies No Cultural/Ethnic/Faith Belief none indicated Usual diet at home none noted Skin Integrity/Comment: Tai 20, Intact Estimated Nutritional Goals BEE in Kcals: Adj wt of IBW Calories/Kcals/Kg 25-30 kcal/kg Using IBW 52.2kg Kcals Calculated ~1122-7696 kcal/day Protein: Adj wt of IBW Protein g/k-1.2 gm/kg Protein Calculated 50-60gm/day Fluid: ml ~9604-3897 ml/day Nutritional Problem 1. Problem Problem Underweight related to Etiology possible poor po intake aeb Signs/Symptoms: BMI 17.2 Intervention/Recommendation Comments 1. Continue cardiac diet as tolerated by patient due to Medical History (LA nonstemi in 2016, CHF, HTN, hyperlipidemia) 2. Encourage oral intake and monitor intake of meals. If oral intake <75% of meals consider adding Ensure Enlive with meals for added calories to increase weight. Expected Outcomes/Goals Expected Outcomes/Goals Oral intake >75% of meals, weight stable or gain, nutrition related labs WNL.
--- NOTE | 2018-09-03 18:19 | Progress Notes ---
DATE: 09/02/2018 SUBJECTIVE: Chart reviewed and the patient interviewed. Also, discussed the patient's condition with the staff and reviewed records and labs. The patient is still confused and anxious, but affect is brighter. The patient also is interacting slightly more, but in a confused state. The patient also still needs redirections. Otherwise, the patient is compliant with taking her medications with no side effects of medications. ASSESSMENT: The patient is calm, but confused and still waiting for placement in her place ____ place. PLAN: We will continue monitoring her behavior and adjust psychotropic medications and continue to follow up. JOB# [id number]
--- NOTE | 2018-09-04 00:03 | Progress Notes ---
DATE: 09/03/2018 SUBJECTIVE: Chart reviewed and the patient interviewed. Also discussed the patient's condition with the staff and reviewed records and labs. The patient continued to be confused and forgetful. The patient also is still restless and still needs redirections. The patient also is interacting minimally with others. Otherwise, the patient is compliant with taking her medications with no side effect of medications. ASSESSMENT: The patient is calm, but still needs redirections and also still waiting for placement. TREATMENT PLAN: Continue to monitor her behavior and her condition closely. Also, continue working on her ineffective coping and continue to work on her confusion as well as placement issue. JOB# [id number]
[2018-09-04] MEDS: Lactobacillus Rhamnosus GG 15 Billion CFU CAP.SPRINK PO SCH (08:36)
[2018-09-04] MEDS: Multivitamin w/ Minerals Tab PO SCH (08:37)
[2018-09-04] MEDS: Docusate Sodium/Senna Tab PO SCH (08:38)
--- NOTE | 2018-09-04 23:14 | Progress Notes ---
DATE: SUBJECTIVE: Chart reviewed and the patient interviewed. Also discussed the patient's condition with the staff and reviewed records and labs. The patient is still restless and is still in irritable mood and wants to be left alone. The patient also is interacting minimally with others. The patient also denies any suicidal ideations. Also, no side effects of medications. ASSESSMENT: The patient is still waiting for placement. TREATMENT PLAN: We will continue to monitor behavior and also continue to work on discharge plans and placement issue. JOB# [id number]
[2018-09-05] MEDS: Docusate Sodium/Senna Tab PO SCH (08:49)
[2018-09-05] MEDS: Multivitamin w/ Minerals Tab PO SCH (08:50)
[2018-09-05] MEDS: Lactobacillus Rhamnosus GG 15 Billion CFU CAP.SPRINK PO SCH (08:50)
--- NOTE | 2018-09-05 09:36 | Progress Notes ---
DATE: 09/05/2018 SUBJECTIVE: The patient is stabilizing likely at her baseline, calm and cooperative. Staff noting she is mostly withdrawn and isolative. No behavioral outbursts. No agitation or escalation of behaviors. No suicidal gestures. No SI, no HI. No overt psychotic symptoms. The patient does not want to talk to me, does not say much. She remains confused, disoriented, just says hello and answers "okay." ASSESSMENT: The patient likely at her baseline. No suicidal gestures. No evidence of dangerousness, remains confused, and disoriented. PLAN: The patient was to have been discharged yesterday due to blood pressure concerns she remained in the hospital. She may be leaving today based on placement confirmation. JOB# [id number]
--- NOTE | 2018-09-06 20:33 | Discharge Summary ---
DATE OF DISCHARGE: 09/05/2018 AGE: 87. SEX: Female. PHYSICIAN: Dr. Sierra. FINAL DIAGNOSIS: PRIMARY DIAGNOSIS: Unspecified psychosis. SECONDARY DIAGNOSIS: Dementia, moderate to severe, without psychotic features. REASON FOR HOSPITALIZATION: The patient was admitted to the hospital because of increased agitation and irritability as well as depression. The patient also was easily agitated and paranoid. HOSPITAL COURSE: The patient continued to be in irritable and agitated mood. The patient also continued to be anxious. She also was suspicious and was paranoid at times. The patient's affect gradually became brighter. The patient was less depressed and less agitated. She also interacted slightly more. The patient was supposed to return to the facility in [place], but at the same time a tree fell on the facility and the patient is unable to return till they fix the place. After the place was fixed and the room was ready, patient was discharged back to [facility] in [place], [place]. PHYSICAL EXAMINATION: The patient showed that the patient has no major medical problems and the patient had no abnormal labs. AFTER DISCHARGE PLANS: The patient will return to [facility] with plan to follow up her there. EXPECTED OUTCOME AFTER DISCHARGE: Fair. JOB# [id number]
== END 2018-09-05 11:20 | DRG 885 ==
LOC: ER 18:11 → GERO 19:35
PROVIDERS: ADMIT Psychiatry & Neurology Psychiatry; ATTEND Psychiatry & Neurology Psychiatry
DX: F29 Unspecified psychosis not due to a substance or known physiological condition (principal); N18.3 Chronic kidney disease, stage 3 (moderate); F03.91 Unspecified dementia, unspecified severity, with behavioral disturbance; N39.0 Urinary tract infection, site not specified; I13.0 Hypertensive heart and chronic kidney disease with heart failure and stage 1 through stage 4 chronic kidney disease, or unspecified chronic kidney disease; E03.9 Hypothyroidism, unspecified; E78.5 Hyperlipidemia, unspecified; I25.2 Old myocardial infarction; I50.9 Heart failure, unspecified; M62.81 Muscle weakness (generalized); K59.00 Constipation, unspecified; R13.10 Dysphagia, unspecified
CPT/HCPCS: 36415-UA; 71045-TC; 80048-TC; 80053-TC; 80061-TC; 80307; 81001-TC; 83036-90; 83735-TC; 84100-TC; 84443-TC; 85025-TC; 87086-90; 90899; 93005; G0410; J0744; X4304; Z7610